=== PATIENT | female | born 1945 | race Caucasian/White ===

== ENCOUNTER 2021-05-01 13:05 | Emergency (ER) | payer MEDICARE, SELFPAY ==
[2021-05-01 13:10] VITALS: BP 202/64; PULSE 94; RESP 15; TEMP 36.7; O2SAT 99; BMI 34.5
--- NOTE | 2021-05-01 13:23 | EKG12_ITS ---
Test Reason : SYNCOPE Blood Pressure : / mmHG Vent. Rate : 037 BPM Atrial Rate : 037 BPM P-R Int : 000 ms QRS Dur : 078 ms QT Int : 530 ms P-R-T Axes : 059 -03 075 degrees QTc Int : 416 ms Marked sinus bradycardia with A-V dissociation and Junctional bradycardia with Sinus/atrial capture Septal infarct , age undetermined Abnormal ECG Confirmed by PHAN POPE, KATELYN ([id number]), senior editor NEDA NELSON ([id number]) on 05/03/2021 7:59:35 AM Referred By: TRACY Confirmed By:KATELYN CHISHOLM MD
--- NOTE | 2021-05-01 13:30 | EDS_ITS ---
HPI History of Present Illness Chief Complaint: Syncope Informant: patient and spouse/S.O. Narrative Narrative: Patient presents via EMS after syncopal episode at home. Patient states that she was sitting on the couch to eat lunch does not member anything after that. Patient's states he saw her stiffen up and gasp for breath. He thought she had choked turned over and slapped her back. She became limp. She quickly regained consciousness but there had not been any foreign body noted. EMS was called and heart rate was noted to be 44 on their EKG. On arrival patient placed on monitor and appears to be in complete heart block on the monitor. [facility] Medical History Anxiety Depression High cholesterol Allergy/AdvReac Type Severity Reaction Status Date / Time No Known Allergies Allergy Verified 05/01/21 13:38 Social History Smoking Status: Never smoker ROS ROS ED Constitutional Constitutional ED: Denies chills or fever(s) Eyes Eyes: Denies blurry vision or change in vision ENT ENT ED: Denies ear pain or rhinorrhea Cardiovascular Cardiovascular: Denies chest pain or palpitations Respiratory/Chest Respiratory/Chest: Denies cough or dyspnea Gastrointestinal Gastrointestinal: Denies abdominal pain, diarrhea or vomiting Genitourinary Genitourinary ED: Denies dysuria Integumentary Denies rash Neurologic Neurologic: Denies headache(s) Allergic/Immunologic Allergic/Immunologic ED: Denies urticaria EXAM Physical Exam Const Vital Signs: 05/01/21 13:10 05/01/21 13:34 Temperature 98.0 F Temperature Source Oral Pulse Rate 94 Respiratory Rate 15 Respiratory Effort Normal Non-Labored Blood Pressure 202/64 H Blood Pressure Mean 110 Pulse Ox 99 Oxygen Delivery Method Room Air Positive well nourished and well developed General Appearance ED: well developed HEENT Reports moist mucous membranes Eyes PERRL Neck supple Chest Wall inspection of chest normal and palpation of chest normal Resp normal respiratory effort and clear to auscultation bilaterally Cardio Rhythm: abnormal rhythm irregularly irregular GI non-tender Palpation: soft Extremity normal to inspection Neuro oriented x3 and no sensory deficits noted Sensorium / Orientation: alert Motor Exam: strength 5/5 throughout Psych mental status grossly normal Skin no rashes or lesions noted MDM MDM MDM Narrative Medical decision making narrative: As I am speaking with the patient at bedside I am watching her monitor with what appears to be third-degree heart block. EKG obtained along with chest x-ray and labs. Lab Data Labs: Laboratory Results - last 24 hr 05/01/21 05/01/21 13:20 13:20 WBC 6.7 RBC 4.46 Hgb 13.7 Hct 40.3 MCV 90.4 MCH 30.7 MCHC 34.0 RDW Std Deviation 41.6 RDW Coeff of Tim 12.7 Plt Count 169 MPV 10.5 Immature Gran % (Auto) 0.100 Neut % (Auto) 64.9 Lymph % (Auto) 26.4 [place] % (Auto) 7.4 Eos % (Auto) 0.6 Baso % (Auto) 0.6 Absolute Neuts (auto) 4.4 Absolute Lymphs (auto) 1.78 Nucleated RBC % 0 Sodium 138 Potassium 4.3 Chloride 106 Carbon Dioxide 28.0 Anion Gap 4 L BUN 18 Creatinine 0.99 Estim Creat Clear Calc 45.26 Est GFR (MDRD) Af Amer 70 Est GFR (MDRD) Non-Af 58 L BUN/Creatinine Ratio 18.1 Glucose 98 Calcium 9.2 Troponin I High Sens 38 EKG Initial EKG: Attestation: I personally reviewed and interpreted this EKG as follows: Interpretation: AV Block (A-V dissociation with junctional bradycardia consistent with complete heart block. Ventricular rate of 37.) Treatment and Re-Evaluation Comments:: EKG immediately discussed with patient and at bedside. Pacer pads placed on the patient. Discussed the importance of getting a pacemaker to support her heart rate. I spoke with cardiology here but the one food and beverage cashier to can do pacemakers is out of town. I did discuss with the patient and importance of transfer to appropriate facility. Patient has been accepted at [facility] in [place]. Discharge Plan Triage Chief Complaint: Syncope ED Provider: Sonia Garcia Dx/Rx/DC Orders Clinical Impression: Complete heart block Primary Care Provider: Duane Diaz Referrals: Duane Diaz MD [Primary Care Provider] - Disposition Disposition: Acute Care Hospital Discharge Location: [facility]
[2021-05-01 13:33] LABS: Absolute Lymphocyte Count 1.78 X10^3/uL (0.83-4.51); Absolute Neutrophil Count 4.4 X10^3/uL (2.0-7.7); Basophil# 0.04 X10^3/uL; Basophil% 0.6 % (0-1); Eosinophil# 0.04 X10^3/uL; Eosinophils% 0.6 % (0-5); Hematocrit 40.3 % (37-47); Hemoglobin 13.7 g/dL (12.0-15.0); Lymphocyte # 1.78 X10^3/ul (0.83-4.51); Lymphocyte % 26.4 % (19-41); Mean Corpuscular Hgb 30.7 pg (27.0-32.0); Mean Corpuscular Volume 90.4 fL (81-99); Mean Platelet Vol. 10.5 fl (6.2-12.0); Monocyte% 7.4 % (0-10); NRBC Flagged by Analyzer 0 % (0-5); Neutrophil # 4.36 X10^3/uL (2.7-7.7); Neutrophil % 64.9 % (47-70); Platelet Count 169 K/mm3 (150-450); RBC Distribution Width CV 12.7 % (11.6-14.6); RBC Distribution Width SD 41.6 fl (35.1-43.9); Red Blood Count 4.46 M/mm3 (4.2-5.4); White Blood Count 6.7 K/mm3 (4.4-11.0)
[2021-05-01] MEDS: 0.9% Normal Saline 1,000 ML 150 ML IV (13:38)
--- NOTE | 2021-05-01 13:46 | RAD_ITS ---
STUDY: X-RAY CHEST REASON FOR EXAM: Female, 76 years old. Chest pain. Syncopal episode. TECHNIQUE: Single AP portable view of the chest. COMPARISON: None. FINDINGS: EKG electrodes are seen. There is a 3.3 cm x 2.8 cm rounded soft tissue mass in the region of the right hilum. A neoplastic process should be ruled out. The lungs are clear. There is no demonstrated pleural abnormality. Normal size heart. Normal visualized pulmonary arteries. Normal visualized aortic arch and descending thoracic aorta. There are diffuse degenerative changes of the visualized thoracic spine. Normal visualized ribs, clavicles, and shoulders. There is no demonstrated abnormality of the visualized soft tissue structures of the upper abdomen. RAD/Chest 1 View (Portable) IMPRESSION: 2.8 cm x 3.3 cm right hilar mass. Correlation with a CT scan is recommended. The lungs are clear. Electronically Signed: Rubens Bartlett MD at 14:31 EST ,
[2021-05-01 13:49] LABS: Anion Gap 4 (5-15); BUN 18 mg/dL (7-18); BUN/Creat Ratio 18.1 RATIO (10-20); Calcium,Total 9.2 mg/dL (8.5-10.1); Chloride 106 mmol/L (98-107); Creatinine, Serum 0.99 mg/dL (0.55-1.02); EST Glomerular Filtration Rate 58 mL/min (>60); Est Glom Filt Rate - Afr Amer 70 mL/min (>60); Estimated Creatinine Clearance 45.26 ml/min; Glucose 98 mg/dL (74-106); Potassium 4.3 mmol/L (3.5-5.1); Sodium Level 138 mmol/L (136-145); Troponin-I HS 38 pg/mL (3.0-54.0)
--- NOTE | 2021-05-01 13:53 | NURSING ---
NO OLD EKGS
--- NOTE | 2021-05-01 14:00 | NURSING ---
NO OLD EKGS
--- NOTE | 2021-05-01 14:07 | NURSING ---
CALLED [facility], [facility] BEDS [facility]DA TALKED TO DR COOMBS
--- NOTE | 2021-05-01 14:08 | NURSING ---
FACESHEET FAXED TO [facility]
[2021-05-01 14:11] VITALS: BP 189/70; PULSE 93; RESP 16; TEMP 36.7; O2SAT 99
--- NOTE | 2021-05-01 14:27 | NURSING ---
CALLED [facility], ETA IS WITHIN THE HOUR
--- NOTE | 2021-05-01 14:50 | NURSING ---
[facility] [phone]
== END 2021-05-01 15:22 | disposition short-term general hospital (02) ==
PROVIDERS: Emergency Provider Emergency Medicine; PCP Family Medicine; Visit Provider Emergency Medicine
DX: I44.2 Atrioventricular block, complete (principal)
CPT/HCPCS: 71045; 80048; 84484; 85025; 93005; 96360; 96361; 99285; J7030